=== PATIENT | male | born 2000 | race Caucasian/White ===

== ENCOUNTER 2023-08-15 14:52 | Emergency (ER) | payer OTHER ==
[2023-08-15 15:09] VITALS: O2SAT 100
--- NOTE | 2023-08-15 15:51 | ED Physician Documentation ---
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 Last tetanus shot was in 2011. The cats vaccination status is unknown. PD PAST MEDICAL HISTORY - Past Medical History Past Medical History: No - Past Surgical History Past Surgical History: No - Present Medications Home Medications: Ambulatory Orders Medication Instructions Recorded Confirmed Amox/Clav 875/125 [Augmentin] 1 each PO Q12H #10 tablet 08/15/23 Rabies Vaccine [Rabavert] 2.5 unit IM ONCE #3 ea 08/15/23 - Allergies Allergies/Adverse Reactions: Allergies Allergy/AdvReac Type Severity Reaction Status Date / Time No Known Drug Allergies Allergy Verified 08/15/23 15:03 - Social History Does the pt smoke?: No Smoking Status: Never smoker PD ED PE NORMAL - Vitals Vital signs reviewed: Yes - General General: Alert and oriented X 3, No acute distress - Extremities Extremities: Other (2 small puncture wounds near the PIP DIP of the left index finger, no tenderness, no distal neurovascular compromise, no limited range of motion.) - Neuro Neuro: Alert and oriented X 3, Normal speech Results - Vitals Vitals: Vital Signs - 24 hr 08/15/23 14:59 Temperature 36.4 C L Heart Rate 75 Respiratory 16 Rate Blood Pressure 155/95 H O2 Saturation 100 PD Medical Decision Making - ED course Complexity details: other (L&[place] paperwork [id number] completed and submitted.) ED course: He is updated on tetanus and restarted Augmentin. The wound is clean and is had already been irrigated. We discussed rabies prophylaxis and other options for observation or utilization of the animal as it is at the jail and he would like to go ahead with vaccination. Departure - Departure Disposition: 01 Home, Self Care Clinical Impression: Animal bite with open wound Condition: Good Record reviewed to determine appropriate education?: Yes Instructions: Bites Scratches Animal Prescriptions: Amox/Clav 875/125 [Augmentin] 1 each PO Q12H #10 tablet Rabies Vaccine [Rabavert] 2.5 unit IM ONCE #3 ea Comments: As far as wound care, he can wash with soap and water and keep it covered with a Band-Aid. If you develop signs of infection, specifically redness, swelling, drainage, increased pain please return for reevaluation. I sent the prescriptions electronically to the [facility] pharmacy at the corner of [address] here in [place]. You need further rabies vaccinations this , next Tuesday, and the Tuesday after. Forms: PCP List
[2023-08-15] MEDS: AMOX/CLAV 875 MG/125 MG TABLET PO STA (16:17)
[2023-08-15] MEDS: TETANUS/DIPHTHERIA/PERTUSSIS 0.5 ML SYRINGE IM ONE (16:17)
[2023-08-15] MEDS: RABIES VACCINE 2.5 UNIT SYRINGE IM ONE (16:18)
[2023-08-15] MEDS: RABIES IMMUNE GLOBULIN 300 UNITS/2 ML IM STA (16:19)
[2023-08-15 16:44] VITALS: BP 132/83
== END 2023-08-15 16:49 | disposition home or self-care (01) ==
LOC: ED 14:52
DX: S61.250A Open bite of right index finger without damage to nail, initial encounter (principal); W55.01XA Bitten by cat, initial encounter; Y93.K9 Activity, other involving animal care; Y92.89 Other specified places as the place of occurrence of the external cause; Y99.0 Civilian activity done for income or pay
CPT/HCPCS: 1040M; 90376; 90471; 90472; 90675; 90715; 96372; 99282; 99283; A9270